=== PATIENT | male | born 1995 | race Caucasian/White ===

== ENCOUNTER 2022-05-15 08:07 | Emergency (ER) | payer MEDICARE, BC, MEDICAID, SELFPAY ==
--- NOTE | ~2022-05-15 | CT_ITS ---
EXAMINATION: CT CERVICAL SPINE WITHOUT CONTRAST CLINICAL INFORMATION: Neck pain status post fall. COMPARISON: None TECHNIQUE: Multiple axial images of the cervical spine were obtained without the administration of intravenous contrast. Coronal and sagittal reformatted images were obtained. There is some limitation secondary to mild motion artifact. This CT examination was performed using dose optimization techniques as appropriate, variously including the following: *Automated exposure control *Adjustment of mA and/or kV according to patient size (this includes techniques or standardized protocols for targeted exams where dose is matched to indication/reason for exam; i.e. extremities or head) *Use of iterative reconstruction technique DLP: 622.40 mGy-cm FINDINGS: There is normal cervical lordosis with normal spinal alignment. The vertebral bodies are intact. The intervertebral disc spaces are unremarkable. The neural foramina are patent. The odontoid process is intact. The facet joints are unremarkable. The spinous processes are intact. The cervical soft tissues are unremarkable. There is no lymphadenopathy. The thyroid gland is unremarkable. CT/CT cervical spine wo IV con IMPRESSION: Unremarkable cervical spine.
--- NOTE | ~2022-05-15 | CT_ITS ---
EXAMINATION: CT HEAD WITHOUT CONTRAST CLINICAL INFORMATION: Headache status post fall. COMPARISON: None TECHNIQUE: Contiguous axial imaging was performed from the skull base to vertex without intravenous administration of contrast. Coronal and sagittal reformatted images were obtained. This CT examination was performed using dose optimization techniques as appropriate, variously including the following: *Automated exposure control *Adjustment of mA and/or kV according to patient size (this includes techniques or standardized protocols for targeted exams where dose is matched to indication/reason for exam; i.e. extremities or head) *Use of iterative reconstruction technique DLP: 1411 mGy-cm FINDINGS: The cortical sulci are normal. The lateral ventricles are symmetrical. The third and fourth ventricles are in their normal midline position. The basilar and prepontine cisterns are unremarkable. There is no acute intra or extracerebral abnormality. There is no mass effect or midline shift. Sections through the bony calvarium are unremarkable. The paranasal show mild to moderate mucosal thickening in the maxillary sinuses bilaterally and ethmoid air cells anteriorly. Moderate left maxillary air-fluid level. The bony orbits and orbital contents are unremarkable. CT/CT head/brain wo IV con IMPRESSION: 1. No acute intracranial pathology. 2. Paranasal sinus inflammatory changes as detailed above.
[2022-05-15 08:16] VITALS: BP 152/78; PULSE 105; RESP 16; TEMP 36.6; O2SAT 98
[2022-05-15 08:17] VITALS: BP 152/78; PULSE 106; RESP 18; TEMP 36.6; O2SAT 98; BMI 36.8
--- NOTE | 2022-05-15 08:23 | ED.FALL ---
HPI - Fall General Chief Complaint: Fall Stated Complaint: Fall/Neck inj Time Seen by Provider: 05/15/22 08:17 Source: patient Mode of arrival: ambulatory Limitations: no limitations History of Present Illness HPI Narrative: 27 yo male hx of depression and what he reports mental health problems notes he slipped on ice outside of school today - hit back of head hard no LOC has severe headache now and neck pain no other injuries no blood thinners. no vomiting. MD complaint: fall Onset (ago): hour(s) (2) Fall from: standing Fall witnessed: no Place fall occurred: school and street Loss of consciousness: none Prolonged down time: no Symptoms prior to fall: none Context: tripped/slipped Location of injury: head and neck Severity: severe Quality: aching and throbbing Associated symptoms (after fall): headache Related Data Previous Rx's Medication Instructions Recorded cyclobenzaprine 10 mg tablet 10 mg PO TID PRN muscle spasm #14 05/15/22 tabs ibuprofen 600 mg tablet 600 mg PO Q6H PRN pain #30 tabs 05/15/22 lidocaine 5 % topical patch 1 patch topical DAILY #30 ea 05/15/22 Allergies Allergy/AdvReac Type Severity Reaction Status Date / Time No Known Allergies Allergy Verified 05/15/22 08:21 Review of Systems Review of Systems: Constitutional : No Fever, No Chills, No Fatigue ENT/Mouth : No sore throat, No Rhinorrhea, pos neck pain Eyes: No Eye Pain, No Swelling, No Redness Cardiovascular : No Chest Pain, No SOB, No Dyspnea on Exertion Respiratory : No Cough, No Sputum Gastrointestinal : No Nausea, No Vomiting, No Diarrhea, No abdominal Pain Genitourinary : No Dysuria, No Urinary Frequency, No Hematuria, Musculoskeletal : No joint pain, No Myalgias, No Joint Swelling Skin : No Skin Lesions, No rash Neuro : No Weakness, No Numbness, No Dizziness, positive Headache Psych : No Anxiety/Panic, No Depression Heme/Lymph: No Bruising, No Bleeding,No Lymphadenopathy Endocrine : No Polyuria, No Polydipsia All other systems reviewed and are negative [facility] Past Medical History Attestation statement: The following information was validated with the patient. Medical History Mental health problem Social History Social History (Updated 01/24/23 @ 08:29 by Eli Montes DO) Patient Tobacco Use Status: Never used Tobacco Advance Directives: Yes Advance Directives Information Provided: Yes Advance Directives on File: No Physical Exam Vital Signs: Vital Signs: Last Vital Signs Temp 97.8 F 05/15/22 08:17 Pulse 106 H 05/15/22 08:17 Resp 18 05/15/22 08:17 BP 152/78 H 05/15/22 08:17 Pulse Ox 98 05/15/22 08:17 O2 Del Method 05/15/22 08:17 BMI result Body Mass Index 36.8 Appearance: Alert. Oriented X3. No acute distress. Eyes: Pupils equal, round and reactive to light. ENT: Pharynx normal. Neck: ttp along lower c spine no step offs CVS: Normal heart rate and rhythm. Pulses normal. Respiratory: No respiratory distress. Breath sounds normal. Abdomen: Soft and nontender. Skin: Skin warm and dry. Normal skin color. Normal skin turgor. Extremities: No lower extremity edema. No calf ttp Neuro: Oriented X 3. No motor deficit. No sensory deficit. Course Course Course Narrative: STEADY GAIT, gcs 15 stable for DC, UE NV intact stable for DC Medications Administered Discontinued Medications Generic Name Dose Route Start Last Admin Trade Name Freq PRN Reason Stop Dose Admin Acetaminophen 650 mg 05/15/22 08:21 05/15/22 08:35 Acetaminophen 325 Mg Tablet PO 05/15/22 08:22 650 mg ONCE ONE Administration Cyclobenzaprine HCl 10 mg 05/15/22 08:21 05/15/22 08:36 Cyclobenzaprine Hcl 10 Mg Tablet PO 05/15/22 08:22 10 mg ONCE ONE Administration Medical Decision Making Medical Decision Making [facility] Narrative: 27 yo male with hx of mental health problems here with c/o head and neck injury s/p fall on ice given severe headache and head strike CT head ordered to r/o ICH. also c/o neck pain CT cspine for fracture ordered - dispo per results and findings - possible strain, ICH, concussion. Differential Diagnosis Differential Diagnoses: The differential diagnosis associated with the presentation includes head injury, concussion, strain, ICH Independent Interpretation I performed an independent interpretation of an: CT Scan Interpretation: no ICH, no fracture noted on interpration Prescription Management I considered prescription management with: Other (flexeril and NSAIDs) Discharge Plan Discharge Clinical Impression: Head injury Qualifiers: Encounter type: initial encounter Qualified Code(s): S09.90XA - Unspecified injury of head, initial encounter Acute whiplash injury Qualifiers: Encounter type: initial encounter Qualified Code(s): S13.4XXA - Sprain of ligaments of cervical spine, initial encounter Patient Disposition: Home, Self-Care Instructions: Head Injury (ED), Cervical Sprain (ED), Ice Pack Application (ED) Additional Instructions: return to ED for any worsening symptoms or concerns return for worsening headaches, vomiting over 2, confusion, numbness, weakness or any other concerns follow up with primary care doctor if not better in 3 days, avoid [employer] video games alcohol and exercise for 3 days Prescriptions: New cyclobenzaprine 10 mg tablet 10 mg PO TID PRN (Reason: muscle spasm) Qty: 14 0RF lidocaine 5 % adhesive patch,medicated 1 patch topical DAILY Qty: 30 0RF Rx Instructions: leave on most painful area for up to 12 hrs ibuprofen 600 mg tablet 600 mg PO Q6H PRN (Reason: pain) Qty: 30 0RF Stand Alone Forms: Work/School Release
[2022-05-15] MEDS: Acetaminophen 325 MG TABLET 650 MG PO (08:35)
[2022-05-15] MEDS: Cyclobenzaprine HCl 10 MG TABLET PO (08:36)
--- NOTE | 2022-05-15 08:47 | PC.NURSE ---
patient a/ox4 . lorenrla . heart rate regular at 100 beats per minute . breathing even and unlabored . lungs clear throughout . skin pink warm and dry . limited range of motion in neck . c/o of 9 out of 10 pain in head and neck r/t fall from slipping on ice outside . no bruising or trauma noted r/t fall on neck or head . patient to CT for images . patient medicated with Tylenol and Flexeril as ordered . patient on telemetry monitor as ordered . patient aware of plan of care .
--- NOTE | 2022-05-15 10:06 | PC.NURSE ---
Patient a/ox4 . went over discharge instructions as ordered by provider . patient to follow up with primary care . patient to return to Ed if symptoms worsen . no questions at this time .
== END 2022-05-15 10:08 | disposition home or self-care (01) ==
PROVIDERS: Emergency Provider Emergency Medicine
DX: S09.90XA Unspecified injury of head, initial encounter (principal); R51.9 Headache, unspecified; M54.2 Cervicalgia; W00.0XXA Fall on same level due to ice and snow, initial encounter; Y93.9 Activity, unspecified; Y92.9 Unspecified place or not applicable; Y99.9 Unspecified external cause status; Z79.899 Other long term (current) drug therapy
CPT/HCPCS: 70450; 72125; 99284

== ENCOUNTER 2022-05-30 21:29 | Emergency (ER) | payer MEDICARE, BC, MEDICAID, SELFPAY ==
[2022-05-30 21:54] VITALS: BP 131/80; BP 135/105; PULSE 85; PULSE 90; RESP 18; TEMP 36.9; O2SAT 96; O2SAT 97; BMI 37.3
--- NOTE | 2022-05-30 22:03 | ECG_ITS ---
Test Reason : chest pain Blood Pressure : / mmHG Vent. Rate : 081 BPM Atrial Rate : 081 BPM P-R Int : 176 ms QRS Dur : 086 ms QT Int : 346 ms P-R-T Axes : 045 033 043 degrees QTc Int : 401 ms Normal sinus rhythm Normal ECG No previous ECGs available Referred By: Generic ED Physician Electronically Signed By:KERMIT GILMAN MD
--- NOTE | 2022-05-30 22:11 | PC.NURSE ---
Frances Fagan rn from pt school and has ok to get a up date on how the pt is going. Rocío Manzano [phone] pt mom
--- NOTE | 2022-05-30 22:27 | ED_ITS ---
HPI - Chest Pain General Chief Complaint: Chest Pain Stated Complaint: anxiety chest pain Time Seen by Provider: 05/30/22 22:20 Source: patient Mode of arrival: EMS Limitations: no limitations History of Present Illness HPI narrative: Patient has history of PTSD/anxiety/bipolar disorder/panic attacks was doing the laundry suddenly had a panic anxiety attack felt racing heart weakness of the legs chest discomfort him that the past by the time patient arrived in the ER everything was back to normal patient feels much better now at this time Related Data Previous Rx's Medication Instructions Recorded cyclobenzaprine 10 mg tablet 10 mg PO TID PRN muscle spasm #14 05/15/22 tabs ibuprofen 600 mg tablet 600 mg PO Q6H PRN pain #30 tabs 05/15/22 lidocaine 5 % topical patch 1 patch topical DAILY #30 ea 05/15/22 Allergies Allergy/AdvReac Type Severity Reaction Status Date / Time No Known Allergies Allergy Verified 05/15/22 08:21 Review of Systems Review of Systems: Yes all other systems are reviewed and are negative PMFSH Past Medical History Medical History Mental health problem Social History Social History Patient Tobacco Use Status: Never used Tobacco Advance Directives: No Physical Exam Vital Signs: Vital Signs: Last Vital Signs Temp 98.4 F 05/30/22 21:54 Pulse 85 05/30/22 21:54 Resp 18 05/30/22 21:54 BP 131/80 05/30/22 21:54 Pulse Ox 96 05/30/22 21:54 O2 Del Method 05/30/22 21:54 BMI result Body Mass Index 37.3 Appearance: Alert. Oriented X3. No acute distress. , cooperative,calm Eyes: PERRLA, No Nystagmus ENT: Pharynx normal. Oral Mucosa moist Neck: Normal inspection. Neck supple. CVS: Normal heart rate and rhythm. Pulses normal. Respiratory: No respiratory distress. Equal air entry bilateral, no wheezing/rales/rhonchi Abdomen: Soft and nontender. Bowel sounds are present, no mass palpable, no CVA tenderness Skin: Skin warm and dry. Normal skin color. Normal skin turgor. Extremities: No lower extremity edema. No calf tenderness Neuro: Oriented X 3. No motor deficit. Medications Administered Discontinued Medications Generic Name Dose Route Start Last Admin Trade Name Freq PRN Reason Stop Dose Admin Clonazepam 1 mg 05/30/22 22:47 05/30/22 22:56 Clonazepam 1 Mg Tablet PO 05/30/22 22:48 1 mg ONCE ONE Administration Medical Decision Making Medical Decision Making [facility] Narrative: Patient with PTSD/anxiety/panic attack came with a episode of panic attack with multiple symptoms vitals are stable EKG normal no history of substance abuse to discharge patient back to his dorm Independent Interpretation I performed an independent interpretation of an: EKG Interpretation: Normal sinus rhythm heart rate 81 beats per minute normal interval normal axis no acute is present in acute ischemia Discharge Plan Discharge Clinical Impression: Panic attack, Atypical chest pain Patient Disposition: Home, Self-Care Instructions: Panic Attack (ED) Additional Instructions: Continue medications for PTSD/depression and follow-up with PCP Prescriptions: No Action cyclobenzaprine 10 mg tablet 10 mg PO TID PRN (Reason: muscle spasm) Qty: 14 0RF lidocaine 5 % adhesive patch,medicated 1 patch topical DAILY Qty: 30 0RF Rx Instructions: leave on most painful area for up to 12 hrs ibuprofen 600 mg tablet 600 mg PO Q6H PRN (Reason: pain) Qty: 30 0RF Interventions: ED Discharge Assessment Last Done: 05/31/22 00:49 Discharge Date/Time: 05/31/22 00:50
[2022-05-30] MEDS: clonazePAM 1 MG TABLET PO (22:56)
--- NOTE | 2022-05-30 22:58 | PC.NURSE ---
Received telephone call from mother Patrizia RN updated mother with POC. She reports pt didn't get klonopin today. Pt medicated per MAR. Called report to nurse Alfaro at [facility]. r/t to pt poc and discharge. Nurse instructed this sports book writer call Security from [facility] at [phone] to schedule return transportation.
== END 2022-05-31 00:50 | disposition home or self-care (01) ==
PROVIDERS: Emergency Provider Internal Medicine
DX: F41.0 Panic disorder [episodic paroxysmal anxiety] (principal); R07.89 Other chest pain; F31.9 Bipolar disorder, unspecified; F43.10 Post-traumatic stress disorder, unspecified; F41.9 Anxiety disorder, unspecified
CPT/HCPCS: 93005; 99283

== ENCOUNTER 2022-07-12 10:33 | Outpatient (REF) | payer MEDICARE, BC, MEDICAID, SELFPAY ==
[2022-07-12 10:48] LABS: MANUAL DIFF FLAG NO
[2022-07-12 10:50] LABS: Basophils Absolute Auto 0.1 X10*3/uL (0.0-0.2); Eosinophils Absolute Auto 0.2 X10*3/uL (0.0-0.4); Eosinophils Percent Auto 3.4 % (0-4); Hematocrit 43.8 % (42.0-52.0); Hemoglobin 15.7 g/dl (14.0-18.0); Imm Gran Abs Auto 0.03 X10*3/uL (0.00-0.03); Imm Gran Pct Auto 0.6 % (0.0-0.4); Lymphocytes Absolute Auto 2.2 X10*3/uL (1.2-4.9); Lymphocytes Percent Auto 42.6 % (20-40); Mean Corpuscular HGB Conc 35.8 g/dl (31.0-36.0); Mean Corpuscular Volume 80.8 fL (80.0-98.0); Mean Platelet Volume 9.2 fL (9.4-12.4); Monocytes Absolute Auto 0.7 X10*3/uL (0.1-1.2); Monocytes Percent Auto 13.1 % (2-11); Neutrophils Absolute Auto 2.1 x10*3/uL (2.0-8.3); Neutrophils Percent Auto 39.3 % (45-73); Platelet Count 260 X10*3/uL (160-400); Red Blood Count 5.42 X10*6/uL (4.60-5.80); White Blood Count 5.3 X10*3/uL (4.8-10.8)
[2022-07-12 11:08] LABS: Alanine Aminotransferase 74 U/L (0-40); Albumin Level 4.7 g/dL (3.5-5.0); Alkaline Phosphatase 52 U/L (39-117); Anion Gap 14 (12-20); Aspartate Amino Transferase 33 U/L (5-37); Bilirubin Total 1.5 mg/dL (0.0-1.0); Blood Urea Nitrogen 7 mg/dL (9-16); Calcium 9.8 mg/dL (8.4-10.2); Carbon Dioxide 25 mmol/L (22-29); Chloride 105 mmol/L (96-108); Estimated Glomerular Filt Rate > 60; Glucose Random 83 mg/dL (60-115); Potassium 4.2 mmol/L (3.3-5.1); Sodium 140 mmol/L (135-145); Total Protein 6.9 g/dL (6.5-8.0)
[2022-07-12 12:08] LABS: Ammonia 51 umol/L (13-55); Valproate 45.7 mcg/mL (50.0-100.0)
[2022-07-13 14:11] LABS: TSH reflex Free T4 1.03 uIU/mL (0.32-4.0)
== END 2022-07-12 10:34 | disposition home or self-care (01) ==
LOC: HO.LAB 10:33
PROVIDERS: Visit Provider Family Medicine Adult Medicine
DX: F31.4 Bipolar disorder, current episode depressed, severe, without psychotic features (principal); Z79.899 Other long term (current) drug therapy
CPT/HCPCS: 36415; 80053; 80164; 82140; 84443; 85025